=== PATIENT | male | born 1955 | race Caucasian/White ===

== ENCOUNTER 2024-01-14 16:19 | Observation (INO) | payer OTHER, SELFPAY ==
[2024-01-14] VITALS (27 sets, daily range): BP systolic 121–166; BP diastolic 75–106; PULSE 69–91; TEMP 36.6–36.7; O2SAT 91–100; BMI 48.6; BMI 46.9
--- NOTE | 2024-01-14 16:48 | XR_ITS ---
The [address] [address] Patient Name: CRISTINA SWANSON MRN: [id number] date: 1955 Sex: M Assigned Patient Location: ED.MAIN Current Patient Location: ER Accession/Order Number: [id number] Exam Date: 01/14/2024 17:18 Report Date: 01/14/2024 17:45 At the request of: BROOKE GATES Procedure: XR chest 1V EXAM: XR chest 1V at 1713 hours HISTORY: syncope COMPARISON: 05/24/2016 TECHNIQUE: AP upright portable chest x-ray FINDINGS: The study is limited by the patient's body habitus. The heart is not grossly enlarged and the vasculature is not distended. There is no clear evidence of a focal infiltrate, effusion or pneumothorax although portions of the left lung base are obscured. The osseous structures are grossly intact. XR/XR chest 1V IMPRESSION: No apparent acute infiltrate or evidence of cardiac decompensation in this limited study. The overall appearance of the chest has probably not changed significantly. Electronically authenticated by: VANESSA FRANCISCO Date: 01/14/2024 17:45
--- NOTE | 2024-01-14 16:48 | ECG_ITS ---
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
--- NOTE | 2024-01-14 16:51 | ED.GENADUL1 ---
HPI HPI - General Adult General Chief complaint: Syncope Stated complaint: Hypertension, Syncopy Time Seen by Provider: 01/14/24 16:28 Source: patient Mode of arrival: Wheelchair Limitations: no limitations History of Present Illness HPI narrative: Patient presents to ED complaining of syncope. He said he has been dealing with lightheadedness for about 6 months. He has been working with his doctor as well because his blood pressure will be high and then sometimes low. He said it gets worse when he stands up. Today he had just finished going to the bathroom and he stood up to walk down the [place] and he started to feel lightheaded and dizzy and then he went down. He landed on his knees but did pass out. The heard him fall and when she ran to the next room to help he was already waking up and trying to stand up. He denies hitting his head he denies neck pain. He states he has chronic neck pain but nothing new or different. He states He has not had a CT scan of his head or had a cardiology visit for the hypertensive hypotensive episodes. He states he had carotid ultrasounds done about 3 years ago. He has been on semaglutide for the past few months and he is lost 30 pounds. He is hoping if he gets the weight off then his blood pressure and everything will improve. He is doing well with his semaglutide. Related Data Home Medications ?Medication ?Instructions ?Recorded ?Confirmed allopurinol 300 mg tablet mg 01/14/24 atorvastatin 20 mg tablet mg 01/14/24 azelastine 137 mcg (0.1 %) nasal intranasal 01/14/24 spray aerosol doxazosin 4 mg tablet mg 01/14/24 felodipine 5 mg tablet,extended mg PO 01/14/24 release 24 hr fluticasone propionate 50 intranasal 01/14/24 mcg/actuation nasal spray,suspension gabapentin 300 mg capsule mg 01/14/24 metoprolol succinate 100 mg mg PO 01/14/24 tablet,extended release 24 hr montelukast 10 mg tablet mg 01/14/24 tizanidine 4 mg tablet mg 01/14/24 tramadol 50 mg tablet mg 01/14/24 trazodone 100 mg tablet mg 01/14/24 Allergies Allergy/AdvReac Type Severity Reaction Status Date / Time NSAIDS (Non-Steroidal Allergy Mild Verified 01/14/24 16:29 Anti-Inflamma Opioid HPI Opioid Management Most Recent Opioid Data: No Data to Display Review of Systems ROS Status of ROS 10 or more systems reviewed and unremarkable except as noted in history and below Exam Narrative Exam Narrative: Time Seen: [] Vital Signs: [Per nurse's notes.] General: [Alert] Skin: [Warm, dry, no rash.] Head: [Normocephalic, atraumatic.] Neck: [Supple, trachea midline.] Eye: [Pupils are equal, round and reactive to light, extraocular movements are intact, normal conjunctiva.] Ears, nose, mouth and throat: oral mucosa moist. Cardiovascular: [Regular rate and rhythm, no murmur.] Respiratory: [Lungs are clear to auscultation, respirations are non-labored, breath sounds are equal.] Chest wall: [No tenderness, no deformity.] Gastrointestinal: [Soft, nontender, non distended, normal bowel sounds.] MSK: 5 out of 5 muscle strength x 4 extremities no calf pain or edema. Small abrasion to left knee Lymphatics: [No lymphadenopathy.] Psychiatric: [Cooperative, appropriate mood & affect.] Neurological: [Alert and oriented to person, place, time, and situation, no focal neurological deficit observed.] Constitutional Vital Signs, click to edit/add: Last Vital Signs Temp 98.1 F 01/14/24 16:26 Pulse 77 01/14/24 18:41 Resp 13 01/14/24 18:31 BP 121/75 01/14/24 18:31 Pulse Ox 94 L 01/14/24 18:41 O2 Del Method Room Air 01/14/24 16:26 Course Vital Signs Vital signs: Vital Signs Temperature 98.1 F 01/14/24 16:26 Pulse Rate 91 H 01/14/24 16:26 Blood Pressure 160/103 H 01/14/24 16:26 Pulse Oximetry 98 01/14/24 16:26 Oxygen Delivery Method Room Air 01/14/24 16:26 Temperature 98.1 F 01/14/24 16:26 Pulse Rate 77 01/14/24 18:41 Respiratory Rate 13 01/14/24 18:31 Blood Pressure 121/75 01/14/24 18:31 Pulse Oximetry 94 L 01/14/24 18:41 Oxygen Delivery Method Room Air 01/14/24 16:26 Medical Decision Making MDM Narrative Medical decision making narrative: Patient will be admitted for further syncope workup. Patient is stable here in ED. He has gotten a little bit dizzy he said his meclizine from this morning has worn off. I ordered him some Valium here because he said that works better for him. I spoke to Pinky, nurse practitioner for Dr. Sampson and she agrees with admission. Telemetry obs. Patient may need carotid ultrasound or possible echo. Patient and family are comfortable care plan for admission Differential Diagnosis Differential Diagnosis: Syncope, TIA, electrolyte abnormality, Lab Data Lab results reviewed: Yes I reviewed the patient's lab results Labs: Lab Results 01/14/24 Range/Units 16:37 WBC 38.2 H* (4.0-11.0) 10^3/uL RBC 5.37 (4.70-6.10) 10^6/uL Hgb 15.2 (14.0-18.0) g/dL Hct 46.1 (42.0-54.0) % MCV 85.8 (80.0-94.0) fL MCH 28.3 (25.9-34.0) pg MCHC 33.0 (29.9-35.2) g/dL RDW 14.5 (11.0-15.0) % Plt Count 184 (150-450) 10^3/uL MPV 9.9 (9.5-13.5) fL Seg Neuts % (Manual) 14.0 Lymphocytes % (Manual) 75.0 H (20.5-60.0) % Atypical Lymphs % (Man) 5.0 % Monocytes % (Manual) 4.0 (1.7-12.0) % Eosinophils % (Manual) 2.0 (0.9-7.0) % Basophils % (Manual) 0.0 L (0.2-2.0) % Neutrophils # (Manual) 5.34 (1.4-6.5) 10^3/uL Lymphocytes # (Manual) 28.65 H (1.20-3.80) 10^3/uL Abs Atypical Lymphs Man 1.91 Monocytes # (Manual) 1.52 H (0.30-0.80) 10^3/uL Eosinophils # (Manual) 0.76 H (0.00-0.70) 10^3/uL Basophils # (Manual) 0.00 (0.00-0.10) 10^3/uL Anisocytosis 1+ Microcytosis 1+ Sodium 137 (136-145) mmol/L Potassium 3.6 (3.5-5.1) mmol/L Chloride 99 (98-107) mmol/L Carbon Dioxide 27.3 (21.0-32.0) mmol/L Anion Gap 14.3 BUN 20.0 H (7.0-18.0) mg/dL Creatinine 1.40 H (0.70-1.30) mg/dL Est GFR ( Amer) >60 (>=60) Est GFR (Non-Af Amer) 50 L (>=60) BUN/Creatinine Ratio 14.3 Glucose 108 H (74-106) mg/dL Calcium 9.1 (8.5-10.1) mg/dL Magnesium 2.4 (1.8-2.4) mg/dL Total Bilirubin 0.8 (0.2-1.0) mg/dL AST 18 (15-37) U/L ALT 30 (16-63) U/L Alkaline Phosphatase 60 (46-116) U/L Troponin I High Sens 6.0 (4.0-76.1) pg/mL Total Protein 7.1 (6.4-8.2) g/dL Albumin 3.9 (3.4-5.0) g/dL Globulin 3.2 g/dL Albumin/Globulin Ratio 1.[address] scan - head: Radiologist's impression: ITS Impressions Chest X-Ray 01/14/24 16:48 IMPRESSION: No apparent acute infiltrate or evidence of cardiac decompensation in this limited study. The overall appearance of the chest has probably not changed significantly. Electronically authenticated by: VANESSA FRANCISOC Date: 01/14/2024 17:[address] 01/14/24 16:55 IMPRESSION: There is no evidence of an intracranial hemorrhage, mass lesion or apparent acute infarct. Small mucoceles or cysts are seen in the left maxillary sinus. The paranasal sinuses otherwise clear. There is no evidence of an acute skull fracture. Except for the findings in the left maxillary sinus, the overall appearance is unchanged. Electronically authenticated by: VANESSA FRANCISCO Date: 01/14/2024 17:51 ECG Data Attestation: I personally reviewed and interpreted this ECG as follows: Interpretation: EKG INTERPRETATION Time: []1630 Rate: []81 Rhythm: _ []Sinus rhythm ST segments: _ []No acute ST elevation or depression T waves: _ [] Ectopy: _ [] P wave/[place] interval: _ [] QRS interval: _ [] QT interval: _ [] Comparison: _ [] Comparison EKG date: [] Performed by: [self] Discharge Plan Discharge Chief Complaint: Syncope Clinical Impression: Vasovagal syncope Patient Disposition: Admitted as Observation Time of Disposition Decision: 18:52 Condition: Fair Prescriptions / Home Meds: No Action atorvastatin 20 mg tablet tizanidine 4 mg tablet felodipine 5 mg tablet extended release 24 hr PO metoprolol succinate 100 mg tablet extended release 24 hr PO tramadol 50 mg tablet trazodone 100 mg tablet gabapentin 300 mg capsule doxazosin 4 mg tablet montelukast 10 mg tablet allopurinol 300 mg tablet azelastine 137 mcg (0.1 %) aerosol,spray INTRANASAL fluticasone propionate 50 mcg/actuation spray,suspension INTRANASAL Print Language: [place]an Referrals: BRANDON REED [Primary Care Provider] - 1 week
--- NOTE | 2024-01-14 16:55 | CT_ITS ---
The [address] [address] Patient Name: CRISTINA SWANSON MRN: [id number] date: 1955 Sex: M Assigned Patient Location: ER Current Patient Location: ER Accession/Order Number: [id number] Exam Date: 01/14/2024 17:18 Report Date: 01/14/2024 17:51 At the request of: BROOKE GATES Procedure: CT head/brain wo con EXAM: CT head/brain wo con HISTORY: syncope with dizziness. COMPARISON: 05/24/2016 TECHNIQUE: Multiple thin computed tomograms of the brain were obtained, with sagittal and coronal reconstructions. Radiation reduction technique and alcohol is were utilized during the study. FINDINGS: The ventricles are not enlarged, the lateral ventricles are symmetric and the third ventricles in the midline. The sylvian fissures and cortical sulci are unremarkable. There is no evidence of an intracranial hemorrhage, mass lesion or apparent acute infarct. A few benign dystrophic calcifications are seen in the basal ganglia on the right. Calcifications of the anterior falx are noted. Frontal hyperostosis is also noted. The cerebellum and visualized brainstem are intact. A lens implant is in place on the right. The visualized paranasal sinuses are clear except for small mucoceles or cysts in the left maxillary sinus. The middle ears are aerated. Sclerotic changes are seen throughout the temporal bone on the right and the left mastoid air cells are aerated. There is no evidence of a skull fracture. CT/CT head/brain wo con IMPRESSION: There is no evidence of an intracranial hemorrhage, mass lesion or apparent acute infarct. Small mucoceles or cysts are seen in the left maxillary sinus. The paranasal sinuses otherwise clear. There is no evidence of an acute skull fracture. Except for the findings in the left maxillary sinus, the overall appearance is unchanged. Electronically authenticated by: VANESSA FRANCISCO Date: 01/14/2024 17:51
[2024-01-14] MEDS: 0.9 % SODIUM CHLORIDE 1,000 ML 1000 ML IV (17:11)
[2024-01-14 17:14] LABS: Hematocrit 46.1 % (42.0-54.0); Hemoglobin 15.2 g/dL (14.0-18.0); Mean Corpuscular Hemoglobin 28.3 pg (25.9-34.0); Mean Corpuscular Volume 85.8 fL (80.0-94.0); Mean Platelet Volume 9.9 fL (9.5-13.5); Platelet Count 184 10^3/uL (150-450); Red Blood Count 5.37 10^6/uL (4.70-6.10); Red Cell Distribution Width 14.5 % (11.0-15.0)
[2024-01-14 17:32] LABS: Alanine Aminotransferase 30 U/L (16-63); Albumin Globulin Ratio 1.2; Albumin Level 3.9 g/dL (3.4-5.0); Alkaline Phosphatase 60 U/L (46-116); Anion Gap 14.3; Aspartate Amino Transferase 18 U/L (15-37); BUN Creatinine Ratio 14.3; Bilirubin Total 0.8 mg/dL (0.2-1.0); Calcium 9.1 mg/dL (8.5-10.1); Carbon Dioxide 27.3 mmol/L (21.0-32.0); Chloride 99 mmol/L (98-107); Estimated GFR (African America >60 (>=60); Estimated GFR (Non-African Ame 50 (>=60); Globulin 3.2 g/dL; Glucose 108 mg/dL (74-106); Magnesium 2.4 mg/dL (1.8-2.4); Potassium 3.6 mmol/L (3.5-5.1); Sodium 137 mmol/L (136-145); Total Protein 7.1 g/dL (6.4-8.2)
[2024-01-14 17:45] LABS: White Blood Count 38.2 10^3/uL (4.0-11.0)
[2024-01-14 17:46] LABS: Anisocytosis 1+; Atypical Lymphocytes Abs Man 1.91; Eosinophils Absolute Manual 0.76 10^3/uL (0.00-0.70); Lymphocytes Absolute Manual 28.65 10^3/uL (1.20-3.80); Microcytosis 1+; Monocytes Absolute Manual 1.52 10^3/uL (0.30-0.80); Segmented Neut Absolute Manual 5.34 10^3/uL (1.4-6.5)
[2024-01-14] MEDS: DIAZEPAM 10 MG/2 ML SYRINGE 2 MG IV (18:53)
--- NOTE | 2024-01-14 20:35 | PC.NURSE ---
Pt arrives from the Er with history of dizziness and near syncope at home. Pt states that he has been seen for the dizziness and diagnosed with labyrithitis. Pt states that he recently saw a specialist they think that they may be able to correct the dizzines with an ear surgery. Pt states that he also has been having problems with his blood pressure fluctuating. Pt states that with position change the room spins and sometimes he feels nauseated. Pt states that he has problems with neck pain that causes headaches and today was having pain from neck up the lt side of his head to the temporal area. Pt states that has loss of taste and smell but blames it on a nasal spray that he uses. Pt states that he takes something daily for bowels, denies any complaints of abd or chest pain. Pt does have a superficial, non bleeding abrasion on the lt knee. Pt does get dizzy when he sits up it bed. Pt told that he needs to call for help when needs to urinate and pt told that Dr wants him on bed rest
[2024-01-14] MEDS: TIZANIDINE HCL 4 MG TABLET PO (21:35)
[2024-01-14] MEDS: TRAZODONE HCL 50 MG TABLET 100 MG PO (21:36)
[2024-01-14] MEDS: ATORVASTATIN CALCIUM 20 MG TABLET PO (21:36)
[2024-01-14] MEDS: TRAMADOL HCL 50 MG TABLET PO (21:36)
[2024-01-14] MEDS: DOXAZOSIN MESYLATE 2 MG TABLET PO (21:36)
[2024-01-14] MEDS: GABAPENTIN 300 MG CAPSULE PO (21:36)
[2024-01-14] MEDS: ACETAMINOPHEN 325 MG TABLET 650 MG PO (21:39)
[2024-01-15] VITALS (20 sets, daily range): BP systolic 86–143; BP diastolic 60–84; PULSE 63–95; TEMP 36.4–36.6; O2SAT 91–97
[2024-01-15 05:14] LABS: Hemoglobin 14.3 g/dL (14.0-18.0); Mean Corpuscular HGB Conc 31.8 g/dL (29.9-35.2); Mean Corpuscular Hemoglobin 28.4 pg (25.9-34.0); Mean Corpuscular Volume 89.5 fL (80.0-94.0); Mean Platelet Volume 9.9 fL (9.5-13.5); Platelet Count 167 10^3/uL (150-450); Red Blood Count 5.03 10^6/uL (4.70-6.10); Red Cell Distribution Width 14.6 % (11.0-15.0)
[2024-01-15 05:23] LABS: Estimated Average Glucose 103 mg/dL; Glycohemoglobin A1C 5.2 % (4.5-6.2)
[2024-01-15 05:47] LABS: Anion Gap 11.5; Carbon Dioxide 28.8 mmol/L (21.0-32.0); Chloride 102 mmol/L (98-107); Chol HDL Ratio 2.9; Cholesterol 81 mg/dL (<=200); Estimated GFR (African America >60 (>=60); Estimated GFR (Non-African Ame 50 (>=60); Glucose 85 mg/dL (74-106); HDL Cholesterol 28 mg/dL (40-60); Potassium 3.3 mmol/L (3.5-5.1); Sodium 139 mmol/L (136-145); Thyroid Stimulating Hormone 1.566 uIU/mL (0.358-3.740); Triglycerides 170 mg/dL (<=150)
--- NOTE | 2024-01-15 05:59 | US_ITS ---
[address] [address] Patient Name: CRISTINA SWANSON MRN: [id number] date: 1955 Sex: M Assigned Patient Location: MS Current Patient Location: MS Accession/Order Number: [id number] Exam Date: 01/15/2024 08:16 Report Date: 01/15/2024 08:57 At the request of: ONUR ANDERSON Procedure: US carotid duplex BI EXAMINATION: US carotid duplex BI HISTORY: near syncope COMPARISON: No relevant comparison available. TECHNIQUE: Duplex Doppler ultrasound analysis of carotid and vertebral arteries. . Bilateral carotid arterial duplex examination was performed using B-mode, color flow and spectral analysis. Carotid stenosis is reported according to validated velocity parameters, similar to NASCET criteria. FINDINGS: RIGHT CAROTID ARTERY Mild atherosclerotic plaque Subclavian: PSV: 72.32 cm/s cm/s EDV: 0 cm/s cm/s CCA: Prox: PSV: 48.77 cm/s cm/s EDV: 11.25 cm/s cm/s Mid: PSV: 48.77 cm/s cm/s EDV: 11.25 cm/s cm/s Distal: PSV: 54.87 cm/s cm/s EDV: 11.25 cm/s cm/s BULB: PSV: 37.42 cm/s cm/s EDV: 12.12 cm/s cm/s ICA: Prox: PSV: 47.89 cm/s cm/s EDV: 11.25 cm/s cm/s Mid: PSV: 96.93 cm/s cm/s EDV: cm/s 34.81 cm/s Distal: PSV: 52.93 cm/s cm/s EDV: 17.99 cm/s cm/s ECA: PSV: 110.80 cm/s cm/s EDV: 7.43 cm/s cm/s VERTEBRAL: PSV: 47.81 cm/s cm/s EDV: 17.12 cm/s cm/s, antegrade ICA/CCA ratio: 1.8 LEFT CAROTID ARTERY mild atherosclerotic plaque Subclavian: PSV: cm/s EDV: CCA: Prox: PSV: 111.29 cm/s cm/s EDV: 14.38 cm/s Mid: PSV: 77.37 cm/s cm/s EDV: 14.38 cm/s Distal: PSV: 82.21 cm/s cm/s EDV: 14.38 cm/s BULB: PSV: 38.60 cm/s cm/s EDV: 9.53 cm/s ICA: Prox: PSV: 56.37 cm/s cm/s EDV: 20.84 cm/s Mid: PSV: 90.29 cm/s cm/s EDV: 36.99 cm/s Distal: PSV: 72.52 cm/s cm/s EDV: 25.68 cm/s ECA: PSV: 78.98 cm/s cm/s EDV: 7.91 cm/s VERTEBRAL: PSV: 57.99 cm/s cm/s EDV: 17.61 cm/s, antegrade ICA/CCA ratio: 1.1: IMPRESSION: 0-49% flow stenosis bilateral internal carotid arteries Spectral Doppler US Thresholds (Reference: Christopher EG, et al. Radiology 2000; 214:247-252) Stenosis (%) PSV (cm/sec) VICA/VCCA 0-49 <150 <2.5 50-69 150-225 2.5-4.0 >70 >225 >4.0 Electronically authenticated by: DALILA DOLL Date: 01/15/2024 08:57
[2024-01-15 06:10] LABS: White Blood Count 35.4 10^3/uL (4.0-11.0)
--- NOTE | 2024-01-15 07:00 | CA_ITS ---
Patient Name: CRISTINA SWANSON MR#: [id number] : 1955 Exam Date: 01/15/2024 Ordering Doctor: CLAUDIA BARDALES ECHOCARDIOGRAM REPORT PROCEDURE: CA ECHO DOPPLER COMPLETE INDICATIONS: syncope COMPARISON: None. DESCRIPTION: COMPLETE ECHOCARDIOGRAM Real-time transthoracic echocardiography with 2D, M-mode, spectral and color flow Doppler performed. QUALITY: Technical quality was adequate. LEFT VENTRICLE: Normal chamber size. Moderate concentric left ventricular hypertrophy. Normal systolic function. Global left ventricular systolic function is normal. LV EF: Estimated left ventricular ejection fraction is 55% DIASTOLIC: Diastolic function is indeterminate. ATRIAL SEPTUM: LEFT ATRIUM: Normal chamber size. RIGHT ATRIUM: Appears normal in size. RIGHT VENTRICLE: Mild dilatation. Normal right ventricular systolic function. TRICUSPID VALVE: Normal mobility and thickness. No stenosis with trivial regurgitation. Unable to assess right-sided pressures due to lack of measurable tricuspid regurgitation. MITRAL VALVE: Normal mobility and thickness. No evidence of mitral valve stenosis. There is no mitral annular calcification. No mitral regurgitation. AORTIC VALVE: Normal trileaflet appearance. No visible sclerosis. Normal leaflet mobility. No evidence of aortic valve stenosis. No aortic regurgitation. AORTIC ROOT: Mildly dilated, measuring 4.0 cm. The ascending aorta is mildly dilated measuring 3.7 cm. PULMONIC VALVE: Normal thickness and mobility. No stenosis. Trivial regurgitation. PERICARDIUM: No evidence of pericardial effusion. IVC: Collapses with inspirations. Normal size. PLEURA: CONCLUSION: 1. Moderate concentric left ventricular hypertrophy with normal systolic function. LVEF is 55%. 2. Mildly dilated right ventricle with normal systolic function. 3. No significant valvular dysfunction. 4. Unable to assess right-sided pressures due to lack of measurable tricuspid regurgitation. 5. Mildly dilated aortic root and ascending aorta. Adult Echocardiography Procedure Report Left Ventricle LVEDD (3.7 - 5.6 cm): 5.18 cm LVESD (2.2 - 4.0 cm): 3.20 cm LVIVS thickness (0.6 - 1.2 cm): 1.42 cm LVPW thickness (0.5 - 1.0 cm): 1.53 cm e': 0.09 m/s E - e': 5.92 LVOT Max Gradient: 2.11 mm[Hg] LVOT Area (cm2): 0.73 m/s Peak Velocity (LVOT): 0.73 m/s Mean Velocity (LVOT): 0.45 m/s LVOT Diameter 2.42 cm Left Ventricular Ejection Fraction: 55 % Left Atrium LA Volume Index (2D A2C): 26.11 ml/m2 Left Atrium Systolic Dimension: 4.44 cm Mitral Valve MV E to A Ratio: 0.73 Mitral Valve A-Wave Peak Velocity: 0.74 m/s Mitral Valve E-Wave Peak Velocity: 0.54 m/s Right Ventricle RV Internal Diastolic Dimension: 4.56 cm Aorta AO Root Diam: 4.00 cm Ascending Ao Diam: 3.75 cm Aortic Valve AoV Area (Peak Rohit): 2.72 cm2, 2.72 cm2 AoV Area (VTI): 4.30 cm2, 4.30 cm2 Peak Velocity(Antegrade Flow): 1.23 m/s Peak Gradient(Antegrade Flow): 6.00 mm[Hg] Mean Velocity(Antegrade Flow): 0.69 m/s Mean Gradient(Antegrade Flow): 2.42 mm[Hg] Velocity Time Integral: 19.25 cm Tricuspid Valve Peak Velocity (Regurgitant Flow): 2.08 m/s Pulmonic Valve Mean Gradient: 2.10 mm[Hg] Mean Velocity: 0.68 m/s Peak Velocity: 0.97 m/s, 0.92 m/s Peak Gradient: 3.36 mm[Hg], 3.73 mm[Hg] Right Atrium Right Atrium Systolic Pressure: 56.72 ml, 56.72 ml Dictated by: Bronson Ayers M.D. on 01/15/2024 at 19:18 Approved by: Bronson Ayers M.D. on 01/15/2024 at 19:22
[2024-01-15 07:31] LABS: Alanine Aminotransferase 26 U/L (16-63); Albumin Globulin Ratio 1.4; Albumin Level 3.7 g/dL (3.4-5.0); Alkaline Phosphatase 56 U/L (46-116); Aspartate Amino Transferase 16 U/L (15-37); Bilirubin Direct 0.2 mg/dL (0.0-0.2); Bilirubin Total 0.8 mg/dL (0.2-1.0); Globulin 2.7 g/dL; Magnesium 2.3 mg/dL (1.8-2.4); Total Protein 6.4 g/dL (6.4-8.2)
--- NOTE | 2024-01-15 08:14 | CM.NOTE ---
Rounds made with Dr. Sampson. Dr. Sampson discusses plan of care--Adjust medications, obtain Echocardiogram and carotid ultrasound. Also will be checking orthostatic vitals. Mr. Lopes in agreement with plan.
--- NOTE | 2024-01-15 08:35 | P.HP_ITS ---
HPI H&P: HPI History of Present Illness Chief complaint: Hypertension, Syncope Narrative: Patient presented to the emergency room status post syncope. He was standing up to urinate felt lightheaded, had tunnel vision and hearing fell to the floor. Did not strike his head. He does think he did lose consciousness for short period of time. He had little episodes of this in the past but nothing ever this severe. When I saw patient up on the medical surgical floor, he was sitting at the bedside, resting comfortably had some mild vertiginous symptoms but that was not what he was describing the previous time that brought him into the emergency room. He has been treated for vertigo over the years but that is not what he is currently experiencing last night. Opioid HPI Opioid Management Most Recent Pain and Opioid Data: Last Pain Scale 0 01/15/24 14:16 Last Pain Assessment 01/15/24 14:16 Last ORT Total Score 0 01/14/24 19:57 Last ORT Risk Category Low Risk 01/14/24 19:57 Review of Systems ROS Status of ROS 10 or more systems reviewed and unremark able except as noted in history and below PFSH PFSH Medical History (Updated 01/14/24 @ 20:23 by Melody Harley) CKD (chronic kidney disease), stage III ?N18.30 - Chronic kidney disease, stage 3 unspecified (ICD-10) Hernia ?K46.9 - Unspecified abdominal hernia without obstruction or gangrene (ICD- 10) Right ankle effusion ?M25.471 - Effusion, right ankle (ICD-10) Arthritis ?M19.90 - Unspecified osteoarthritis, unspecified site (ICD-10) Gout ?M10.9 - Gout, unspecified (ICD-10) Hypotension ?I95.9 - Hypotension, unspecified (ICD-10) HTN (hypertension) ?I10 - Essential (primary) hypertension (ICD-10) Sleep apnea ?G47.30 - Sleep apnea, unspecified (ICD-10) CLL (chronic lymphocytic leukemia) ?C91.10 - Chronic lymphocytic leukemia of B-cell type not having achieved remission (ICD-10) Surgical History (Updated 01/14/24 @ 20:00 by Melody Harley) Hx of cataract surgery ?Z98.49 - Cataract extraction status, unspecified eye (ICD-10) History of cholecystectomy ?Z90.49 - Acquired absence of other specified parts of digestive tract (ICD- 10) Family History (Updated 01/14/24 @ 20:01 by Melody Harley) Other Family history of CHF (congestive heart failure) Family history of COPD (chronic obstructive pulmonary disease) Family history of cancer Family history of diabetes mellitus Family history of hypertension Family history of myocardial infarction Social History (Updated 01/14/24 @ 20:02 by Melody Harley) Within the past year, how often did you have a drink containing alcohol: never Within the past year, how many standard drinks containing alcohol did you have on a typical day: 1 or 2 Within the past year, how often did you have six or more drinks on one occasion: never Total score: 0 Score interpretation: A score less than 4 is consistent with normal alcohol consumption. Smoking status: Never smoker Non-prescribed substance use: denies use Are you now , , , , never or living with a partner: In a typical week, how many times do you talk on the telephone with family, friends, or neighbors: 3 or more times per week How often do you get together with friends or relatives: 3 or more times per week Little interest or pleasure in doing things: not at all Feeling down, depressed, or hopeless: not at all Feel stressed/tense/nervous/anxious/difficulty sleeping: not at all Do you think of yourself as: straight/heterosexual Gender Identity: male Meds Home Medications and Allergies Home Medications ?Medication ?Instructions ?Recorded ?Confirmed ?Type allopurinol 300 mg tablet 300 mg PO DAILY 01/14/24 01/14/24 History atorvastatin 20 mg tablet 20 mg PO BEDTIME 01/14/24 01/14/24 History azelastine 137 mcg (0.1 %) nasal 1 spray intranasal Q12H 01/14/24 01/14/24 History spray aerosol doxazosin 4 mg tablet 2 mg PO BEDTIME 01/14/24 01/14/24 History felodipine 5 mg tablet,extended 5 mg PO DAILY 01/14/24 01/14/24 History release 24 hr fluticasone propionate 50 1 spray intranasal DAILY 01/14/24 01/14/24 History mcg/actuation nasal spray,suspension gabapentin 300 mg capsule 300 mg PO Q12H 01/14/24 01/14/24 History losartan 100 1 tab PO DAILY 01/14/24 01/14/24 History mg-hydrochlorothiazide 25 mg tablet metoprolol succinate 100 mg 100 mg PO DAILY 01/14/24 01/14/24 History tablet,extended release 24 hr montelukast 10 mg tablet 10 mg PO DAILY 01/14/24 01/14/24 History tizanidine 4 mg tablet 4 mg PO BEDTIME 01/14/24 01/14/24 History tramadol 50 mg tablet 50 mg PO BEDTIME 01/14/24 01/14/24 History trazodone 100 mg tablet 100 mg PO BEDTIME 01/14/24 01/14/24 History Allergies Allergy/AdvReac Type Severity Reaction Status Date / Time NSAIDS (Non-Steroidal Allergy Mild Verified 01/14/24 16:29 Anti-Inflamma Exam Constitutional Vital Signs, click to edit/add: Last Vital Signs Temp 97.5 F L 01/15/24 07:54 Pulse 68 01/15/24 07:54 Resp 18 01/15/24 07:56 BP 112/73 01/15/24 07:54 Pulse Ox 95 01/15/24 07:54 O2 Del Method Room Air 01/15/24 07:54 Documenting provider has reviewed patient's vital signs: yes Common normals: no apparent distress Chest Common normals: inspection of chest normal and palpation of chest normal Respiratory Common normals: normal respiratory effort and no retractions Cardio Common normals: regular rate, regular rhythm and no murmurs GI Common normals: Normal to inspection, nondistended, normoactive bowel sounds present, soft to palpation and non-tender Results Labs Labs: Short CBC 01/14/24 01/15/24 Range/Units 16:37 04:07 WBC 38.2 H* 35.4 H* (4.0-11.0) 10^3/uL Hgb 15.2 14.3 (14.0-18.0) g/dL Hct 46.1 45.0 (42.0-54.0) % Plt Count 184 167 (150-450) 10^3/uL BMP 01/14/24 01/15/24 16:37 04:07 Sodium 137 139 Potassium 3.6 3.3 L Chloride 99 102 Carbon Dioxide 27.3 28.8 BUN 20.0 H 17.0 Creatinine 1.40 H 1.42 H Glucose 108 H 85 Calcium 9.1 9.0 Liver Function 01/14/24 01/15/24 Range/Units 16:37 04:07 Total Bilirubin 0.8 0.8 (0.2-1.0) mg/dL Direct Bilirubin 0.2 (0.0-0.2) mg/dL AST 18 16 (15-37) U/L ALT 30 26 (16-63) U/L Alkaline Phosphatase 60 56 (46-116) U/L Albumin 3.9 3.7 (3.4-5.0) g/dL Assessment and Plan Assessment and Plan (1) CLL (chronic lymphocytic leukemia): (2) Sleep apnea: (3) HTN (hypertension): (4) Hypotension: (5) CKD (chronic kidney disease), stage III: Plan Uncontrolled hypertension resulting in syncope, check orthostatic vitals, keep on telemetry, check echocardiogram and carotid Dopplers-this sounds like orthostatic hypotension. Will adjust his blood pressure medications to remove the Cardura his beta-jeanette, monitor blood pressure closely, for him and may be safer to be a little bit above the average normal while preventing the hypotension episodes. Plan based on results of testing. CLL-his levels that he states are pretty normal for him with his significant leukocytosis Chronic kidney disease is listed as stage III-will monitor daily Low back pain-continue with home medications Insomnia-continue with home medications Sleep apnea-continue with home machine Admission status: Patient blood pressure still fluctuating significantly to the point that is not safe for him to go home. Continue to adjust medications. His medically necessary treatment will span 2 midnights. Inpatient status.
[2024-01-15] MEDS: GABAPENTIN 300 MG CAPSULE PO ×2 (08:44→21:04)
[2024-01-15] MEDS: FLUTICASONE PROPIONATE 50 MCG NASAL SPRAY 1 SPRAY NS (08:44)
[2024-01-15] MEDS: AZELASTINE HCL 0.1% NASAL SPRAY 1 SPRAY NS (08:44)
[2024-01-15] MEDS: MONTELUKAST SODIUM 10 MG TABLET PO (08:44)
[2024-01-15] MEDS: ALLOPURINOL 300 MG TABLET PO (08:44)
[2024-01-15] MEDS: MECLIZINE HCL 12.5 MG TABLET 25 MG PO ×4 (10:29→21:03)
[2024-01-15] MEDS: FLUDROCORTISONE ACETATE 0.1 MG TABLET PO (10:29)
--- NOTE | 2024-01-15 13:13 | SWNOTE1 ---
SW met with pt to discuss dc needs. Pt live at home with his and 2 daughters. Pt is independent at home. He voiced he was using the bathroom and fell to his knees and hit the door and then called for his . Pt voiced he is feeling better now. He does not anticipate any discharge needs at this time. SW to follow as needed. Important Message from Medicare reviewed and discussed with patient. Pt. verbalized understanding and signed the form. Original given to patient and copy placed in patient?s chart.
[2024-01-15] MEDS: TRAZODONE HCL 50 MG TABLET 100 MG PO (21:03)
[2024-01-15] MEDS: TRAMADOL HCL 50 MG TABLET PO (21:04)
[2024-01-15] MEDS: ATORVASTATIN CALCIUM 20 MG TABLET PO (21:04)
[2024-01-15] MEDS: TIZANIDINE HCL 4 MG TABLET PO (21:04)
[2024-01-15] MEDS: ACETAMINOPHEN 500 MG TABLET 1000 MG PO (21:06)
[2024-01-16] VITALS (9 sets, daily range): BP systolic 111–160; BP diastolic 70–91; PULSE 64–92; TEMP 36.6–36.8; O2SAT 94–95
[2024-01-16 05:47] LABS: Basophils Absolute Auto 0.1 10^3/uL (0.0-0.1); Basophils Percent Auto 0.4 % (0.2-2.0); Eosinophils Absolute Auto 0.2 10^3/uL (0.0-0.7); Eosinophils Percent Auto 0.6 % (0.9-7.0); Hematocrit 44.7 % (42.0-54.0); Hemoglobin 14.5 g/dL (14.0-18.0); Immature Granulocytes Abs Auto 0.08 10^3/uL (0.00-0.03); Immature Granulocytes Pct Auto 0.3 % (0.0-0.5); Lymphocytes Absolute Auto 24.2 10^3/uL (1.2-3.8); Lymphocytes Percent Auto 78.6 % (20.5-60.0); Mean Corpuscular HGB Conc 32.4 g/dL (29.9-35.2); Mean Corpuscular Hemoglobin 28.2 pg (25.9-34.0); Mean Platelet Volume 10.3 fL (9.5-13.5); Monocytes Percent Auto 3.1 % (1.7-12.0); Neutrophils Absolute Auto 5.3 10^3/uL (1.4-6.5); Platelet Count 158 10^3/uL (150-450); Red Blood Count 5.14 10^6/uL (4.70-6.10); Red Cell Distribution Width 14.5 % (11.0-15.0)
[2024-01-16] MEDS: MECLIZINE HCL 12.5 MG TABLET 25 MG PO (06:00)
[2024-01-16 06:12] LABS: Anion Gap 16.2; BUN Creatinine Ratio 11.6; Calcium 8.9 mg/dL (8.5-10.1); Carbon Dioxide 26.1 mmol/L (21.0-32.0); Chloride 103 mmol/L (98-107); Estimated GFR (African America >60 (>=60); Estimated GFR (Non-African Ame 55 (>=60); Glucose 82 mg/dL (74-106); Potassium 3.3 mmol/L (3.5-5.1); Sodium 142 mmol/L (136-145)
[2024-01-16 06:37] LABS: White Blood Count 30.8 10^3/uL (4.0-11.0)
[2024-01-16 07:38] LABS: Bilirubin Urine SMALL (NEGATIVE); Blood Urine NEGATIVE (NEGATIVE); Clarity Urine CLEAR (CLEAR); Color Urine YELLOW (YELLOW); Glucose Urine UA NEGATIVE (NEGATIVE); Ketones Urine NEGATIVE (NEGATIVE); Leukocyte Esterase Urine NEGATIVE (NEGATIVE); Nitrite Urine NEGATIVE (NEGATIVE); Protein Urine 30 mg/dL (NEG/TRACE); Specific Gravity Urine 1.025 (1.005-1.025); Urobilinogen Urine 0.2 EU/dL (0.2-1.0)
[2024-01-16 07:48] LABS: Bacteria Urine MODERATE #/HPF (NONE SEEN); RBC Urine NONE SEEN #/HPF (0-2); WBC Urine 0-2 #/HPF (NONE SEEN)
[2024-01-16 07:49] LABS: Calcium Oxalate Crystals Urine FEW; Cast Seen? NONE SEEN #/LPF (NONE SEEN); Crystals Seen? Seen #/HPF (None Seen); Mucus Urine MODERATE (NONE SEEN); Squamous Epithelial Cell Urine FEW #/LPF (NONE/RARE)
[2024-01-16 07:50] LABS: Urine Culture Indicated YES
--- NOTE | 2024-01-16 09:07 | P.DS_ITS ---
DS: Providers Provider Date of admission: 01/15/24 08:35 Primary care physician: BRANDON CEBALLOS Consults: 01/15/24 07:00 Consult to Cardiology Routine Reason for consultation: Syncope Has provider been notified: No DS: Diagnosis Discharge Diagnosis (1) CLL (chronic lymphocytic leukemia): (2) Sleep apnea: (3) HTN (hypertension): (4) Hypotension: (5) CKD (chronic kidney disease), stage III: Plan Uncontrolled hypertension resulting in syncope, check orthostatic vitals, keep on telemetry, check echocardiogram and carotid Dopplers-this sounds like orthostatic hypotension. Improving at the time of discharge CLL-his levels that he states are pretty normal for him with his significant leukocytosis-stable at the time of discharge Chronic kidney disease is listed as stage III-stable at the time of discharge Low back pain-continue with home medications Insomnia-continue with home medications Sleep apnea-continue with home machine Admission status: Patient blood pressure still fluctuating significantly to the point that is not safe for him to go home. Continue to adjust medications. His medically necessary treatment will span 2 midnights. Inpatient status. ? DS: Summary Hospital Course Hospital Course: Patient mated after having episodes of near syncope, but on the day of admission had a syncopal episode. Here in the hospital he was orthostatic positive. His medications were adjusted for his blood pressure. His blood pressure still dropped 20 points this morning he was completely asymptomatic. This is being off of his Cardura and lisinopril. Currently maintained on his beta-jeanette also sent home on Florinef low-dose. Monitor that as an outpatient. Patient is improved to the point that he can be discharged to home safely. Did ambulate well. carotid ultrasound were unremarkable. Medication status. Follow-up with PCP within the next week. Status at Discharge Overall status at discharge: patient is back to baseline Time Spent with Patient Time attestation: Total time spent providing and/or coordinating discharge services: Time spent: greater than 30 minutes Exam Constitutional Vital Signs, click to edit/add: Last Vital Signs Temp 97.8 F 01/16/24 03:57 Pulse 90 06/27/24 08:00 Resp 18 01/16/24 03:57 BP 160/91 H 01/16/24 09:04 Pulse Ox 95 01/16/24 04:11 O2 Del Method Home BIPAP / CPAP 01/16/24 04:11 Documenting provider has reviewed patient's vital signs: yes Common normals: no apparent distress Chest Common normals: inspection of chest normal and palpation of chest normal Respiratory Common normals: normal respiratory effort and no retractions Cardio Common normals: regular rate, regular rhythm and no murmurs GI Common normals: Normal to inspection, nondistended, normoactive bowel sounds present, soft to palpation and non-tender DS: Data Data Completed and Pending Labs on day of discharge: Labs from last 24 hours 01/16/24 01/15/24 04:12 07:00 WBC 30.8 H* RBC 5.14 Hgb 14.5 Hct 44.7 MCV 87.0 MCH 28.2 MCHC 32.4 RDW 14.5 Plt Count 158 MPV 10.3 Neut % (Auto) 17.0 L Lymph % (Auto) 78.6 H Pennington % (Auto) 3.1 Eos % (Auto) 0.6 L Baso % (Auto) 0.4 Neut # (Auto) 5.3 Lymph # (Auto) 24.2 H [place] # (Auto) 1.0 H Eos # (Auto) 0.2 Baso # (Auto) 0.1 Abs Immat Gran (auto) 0.08 H Imm/Tot Granulo (auto) 0.3 Sodium 142 Potassium 3.3 L Chloride 103 Carbon Dioxide 26.1 Anion Gap 16.2 BUN 15.0 Creatinine 1.29 Est GFR ( Amer) >60 Est GFR (Non-Af Amer) 55 L BUN/Creatinine Ratio 11.6 Glucose 82 Calcium 8.9 Urine Color Yellow Urine Clarity Clear Urine pH 6.0 Ur Specific Romulus 1.025 Urine Protein 30 A Urine Glucose (UA) Negative Urine Ketones Negative Urine Occult Blood Negative Urine Nitrite Negative Urine Bilirubin Small A Urine Urobilinogen 0.2 Ur Leukocyte Esterase Negative Urine RBC None seen Urine WBC 0-2 A Ur Squamous Epith Cells Few A Urine Crystals Seen A Calcium Oxalate Crystal Few Urine Bacteria Moderate A Urine Casts None seen Urine Mucus Moderate A Ur Culture Indicated? Yes Discharge Plan Discharge Disposition: Home, Self-Care Condition: Fair Discharge Medications: New fludrocortisone 0.1 mg Tablet 0.1 mg PO QD Qty: 30 11RF Continued atorvastatin 20 mg tablet 20 mg PO BEDTIME tizanidine 4 mg tablet 4 mg PO BEDTIME felodipine 5 mg tablet extended release 24 hr 5 mg PO DAILY metoprolol succinate 100 mg tablet extended release 24 hr 100 mg PO DAILY tramadol 50 mg tablet 50 mg PO BEDTIME trazodone 100 mg tablet 100 mg PO BEDTIME gabapentin 300 mg capsule 300 mg PO Q12H montelukast 10 mg tablet 10 mg PO DAILY allopurinol 300 mg tablet 300 mg PO DAILY azelastine 137 mcg (0.1 %) aerosol,spray 1 spray INTRANASAL Q12H fluticasone propionate 50 mcg/actuation spray,suspension 1 spray INTRANASAL DAILY Discontinued doxazosin 4 mg tablet 2 mg PO BEDTIME losartan-hydrochlorothiazide 100-25 mg tablet 1 tab PO DAILY Activity: resume usual activities as tolerated Diet: advance to your usual diet Print Language: Citizen Of [place] Patient Instructions: Fludrocortisone Acetate (By mouth), Near Syncope (DC) Forms: Portal Instructions Follow Up Appointments: January 19 @ 1:40pm with Dr. Ceballos [phone] Discharge Date/Time: 01/16/24 10:16
[2024-01-16] MEDS: ALLOPURINOL 300 MG TABLET PO (09:21)
[2024-01-16] MEDS: MONTELUKAST SODIUM 10 MG TABLET PO (09:21)
[2024-01-16] MEDS: GABAPENTIN 300 MG CAPSULE PO (09:21)
[2024-01-16] MEDS: METOPROLOL SUCCINATE 100 MG TAB.ER.24H PO (09:21)
[2024-01-16] MEDS: FLUDROCORTISONE ACETATE 0.1 MG TABLET PO (09:21)
[2024-01-16] MEDS: AZELASTINE HCL 0.1% NASAL SPRAY 1 SPRAY NS (09:22)
--- NOTE | 2024-01-20 11:26 | CM.DCFOLLOWU ---
Person spoke with: patient How are you feeling? well How is your pain? none Did you understand your discharge instructions? yes Do you have any questions about your discharge instructions? no Were you given any prescriptions at discharge? yes Were you able to get your prescriptions filled? yes Do you understand how to take your medications as ordered? yes Do you have any questions about your follow up appointment and do you plan to keep your follow up appointment? no questions, follow up today with PCP Is there anything else that you would like to discuss? no Questions/Comments/Concerns/Other: no
== END 2024-01-16 10:16 | disposition home or self-care (01) | DRG 312 ==
LOC: ER 18:52 → MS 22:42
PROVIDERS: Registered Nurse; Admitting Provider Family Medicine; Emergency Provider Emergency Medicine; PCP Family Medicine; Visit Provider Family Medicine
DX: I95.1 Orthostatic hypotension (principal); G47.30 Sleep apnea, unspecified; I12.9 Hypertensive chronic kidney disease with stage 1 through stage 4 chronic kidney disease, or unspecified chronic kidney disease; G47.00 Insomnia, unspecified; M10.9 Gout, unspecified; M54.50 Low back pain, unspecified; M54.2 Cervicalgia; G89.29 Other chronic pain; Z79.899 Other long term (current) drug therapy; Z88.6 Allergy status to analgesic agent; Z82.49 Family history of ischemic heart disease and other diseases of the circulatory system; Z79.891 Long term (current) use of opiate analgesic; N18.30 Chronic kidney disease, stage 3 unspecified; C91.10 Chronic lymphocytic leukemia of B-cell type not having achieved remission
CPT/HCPCS: 36415; 70450; 71045; 80048; 80053; 80061; 80076; 81001; 83036; 83735; 84436; 84443; 84481; 84484; 85007; 85025; 85027; 87086; 87150; 87186; 93005; 93306; 93880; 94667; 94668; 94761; 96361; 96374; 99285; G0378; J3360